=== PATIENT | female | born 1960 | race Two or more races ===

== ENCOUNTER 2020-08-17 19:06 | Emergency (ER) | payer MEDICAID, OTHER ==
[~2020-08-17] VITALS: Ht 154.9 cm; Wt 86.2 kg
[2020-08-17] MEDS ORDERED: fentaNYL CITRATE 100 MCG/2 ML VL IV ONE (21:45)
[2020-08-17] MEDS ORDERED: ONDANSETRON HCL 4 MG/2 ML VIAL IV ONE (21:45)
[2020-08-17] MEDS ORDERED: KETOROLAC TROMETH 30 MG/ML 1ML VIAL IV ONE (21:45)
[2020-08-18] MEDS ORDERED: HYDROcodone-ACET 10/325MG TAB ONE (00:09)
[2020-08-18] MEDS ORDERED: HYDROcodone-ACET 10/325MG TAB PO ONE (00:30)
[2020-08-18 01:00] VITALS: BP 110/58
== END 2020-08-18 00:59 | disposition home or self-care (01) ==
LOC: EDBD 19:06 → ER 19:06
DX: S76.302A Unspecified injury of muscle, fascia and tendon of the posterior muscle group at thigh level, left thigh, initial encounter (principal); E11.9 Type 2 diabetes mellitus without complications; E78.5 Hyperlipidemia, unspecified; W18.39XA Other fall on same level, initial encounter; Y93.89 Activity, other specified; Y92.89 Other specified places as the place of occurrence of the external cause; Y99.8 Other external cause status
CPT/HCPCS: 73552; 73560; 96374; 96375; 99284; J1885; J2405

== ENCOUNTER 2020-11-23 12:56 | Emergency (ER) | payer MEDICAID ==
[~2020-11-23] VITALS: Ht 154.9 cm; Wt 86.2 kg
[2020-11-23] MEDS ORDERED: ONDANSETRON HCL 4 MG/2 ML VIAL IV ONE ×2 (13:45→14:45)
[2020-11-23] MEDS ORDERED: MORPHINE SULF INJ 2 MG/ML SYRINGE 1ML IV ONE ×2 (13:45→15:00)
[2020-11-23] MEDS ORDERED: MORPHINE SULFATE 4 MG/ML SYR/VIAL IV ONE (14:45)
[2020-11-23 16:13] VITALS: BP 161/82
== END 2020-11-23 17:08 | disposition home or self-care (01) ==
LOC: EDBD 12:56 → ER 12:56
DX: S52.572A Other intraarticular fracture of lower end of left radius, initial encounter for closed fracture (principal); S39.012A Strain of muscle, fascia and tendon of lower back, initial encounter; E11.9 Type 2 diabetes mellitus without complications; E78.5 Hyperlipidemia, unspecified; W01.0XXA Fall on same level from slipping, tripping and stumbling without subsequent striking against object, initial encounter; Y93.89 Activity, other specified; Y92.89 Other specified places as the place of occurrence of the external cause; Y99.8 Other external cause status
CPT/HCPCS: 29125; 72131; 73110; 96374; 96375; 96376; 99284; J2270; J2405

== ENCOUNTER 2020-12-18 06:38 | Emergency (ER) | payer MEDICAID ==
[~2020-12-18] VITALS: Ht 157.5 cm; Wt 97.1 kg
[2020-12-18] MEDS ORDERED: HYDROcodone-ACET 10/325MG TAB PO ONE (08:15)
[2020-12-18] MEDS ORDERED: cloNIDine HCL 0.1 MG TAB PO ONE (08:15)
[2020-12-18 09:47] VITALS: BP 101/50
== END 2020-12-18 09:58 | disposition home or self-care (01) ==
LOC: ER 06:38
DX: G56.02 Carpal tunnel syndrome, left upper limb (principal); R07.9 Chest pain, unspecified; R50.9 Fever, unspecified; I10 Essential (primary) hypertension; E11.9 Type 2 diabetes mellitus without complications; E78.5 Hyperlipidemia, unspecified
CPT/HCPCS: 71045; 99283; J7030

== ENCOUNTER 2023-12-27 15:18 | Inpatient (IN) | payer MEDICAID ==
[~2023-12-27] VITALS: Ht 157.5 cm; Wt 63.0 kg
[2023-12-27 16:16] LABS: Basophils # (auto) 0 10 ^3/uL (0-0.2); Basophils % (auto) 0.4 % (0.0-2.0); Eosinophils # (auto) 0.1 10 ^3/uL (0-0.8); Eosinophils % (auto) 1.1 % (0.0-7.0); Hematocrit 35.5 % (36.0-46.0); Hemoglobin 11.9 g/dL (12.2-16.2); Lymphocytes # (auto) 3.2 10 ^3/uL (0.4-5.4); Lymphocytes % (auto) 30.8 % (10.0-50.0); Mean Corpuscular Hemoglobin 29.7 pg (28.0-32.0); Mean Corpuscular Hgb Conc. 33.5 g/dL (32.0-36.0); Mean Corpuscular Volume 88.7 fL (80.0-100.0); Monocytes # (auto) 0.5 10 ^3/uL (0-1.3); Monocytes % (auto) 4.5 % (0.0-12.0); Neutrophils # (auto) 6.6 10 ^3/uL (1.6-8.6); Neutrophils % (auto) 63.2 % (37.0-80.0); Nucleated Red Blood Cells % 0.1 %; Red Cell Distribution Width 13.7 % (11.8-14.3); White Blood Cell 10.5 10^3/uL (4.4-10.8)
[2023-12-27 16:36] LABS: Alanine Aminotransferase 18 U/L (7-40); Albumin 4.5 g/dL (3.2-4.8); Alkaline Phosphatase 56 U/L (46-116); Anion Gap 9 (5-15); Aspartate Aminotransferase 14 U/L (13-40); BUN/Creatinine Ratio 31.5 (10.0-20.0); Bilirubin, Total 0.3 mg/dL (0.2-1.0); Blood Urea Nitrogen 35 mg/dL (9-23); Calcium 10.1 mg/dL (8.7-10.4); Carbon Dioxide 26 mmol/L (20-30); Chloride 105 mmol/L (98-107); Glucose 86 mg/dL (74-106); Sodium 140 mmol/L (136-145); Total Protein 6.8 g/dL (5.7-8.2)
[2023-12-27 17:09] VITALS: PULSE 90; RESP 18; O2SAT 96
[2023-12-27 17:53] LABS: Urine Bacteria None Seen /hpf (None Seen)
[2023-12-27 18:13] LABS: Urine Blood Negative /uL (Negative); Urine Clarity Clear (Clear); Urine Color Light-Yellow (Yellow); Urine Protein, UAD Negative (Negative); Urine Specific Gravity 1.012 (1.001-1.035); Urine Urobilinogen Normal (Negative); Urine WBC 1 /hpf (0 - 5)
[2023-12-27] MEDS: ACETAMINOPHEN 500 MG TAB PO ONE (18:15)
[2023-12-27] MEDS: SODIUM CHLORIDE 0.9% 1,000 ML IV ONE ×2 (18:42→18:45)
[2023-12-27 19:30] VITALS: PULSE 87; RESP 11; O2SAT 94
[2023-12-27] MEDS ORDERED: LEV25T PO (19:43)
[2023-12-27] MEDS ORDERED: ASPI81CH49 PO (19:43)
[2023-12-27] MEDS ORDERED: AMLO1TAB23 PO (19:43)
[2023-12-27] MEDS ORDERED: [UNRECOGNIZED DRUG - CODE] IV (19:43)
[2023-12-27] MEDS ORDERED: HYDR12.55 PO (19:43)
[2023-12-27] MEDS ORDERED: ROSU40TA47 PO (19:43)
[2023-12-27] MEDS ORDERED: ESCI5TAB20 PO (19:43)
[2023-12-27] MEDS ORDERED: GAB100C PO (19:43)
[2023-12-27] MEDS ORDERED: LISI10TA34 PO (19:43)
[2023-12-27] MEDS ORDERED: NITROGLYCERIN 0.4 MG SL TAB SL PRN (19:45)
[2023-12-27] MEDS ORDERED: DOCUSATE SOD 100 MG CAP PO PRN (19:45)
[2023-12-27] MEDS ORDERED: ONDANSETRON HCL 4 MG/2 ML VIAL IV PRN (19:45)
[2023-12-27] MEDS ORDERED: MORPHINE SULFATE INJ 2 MG/ml SYRG IV PRN ×2 (19:45)
[2023-12-27 20:50] LABS: Amphetamine Screen, Urine Neg (NEGATIVE); Barbiturate Scree,Urine Neg (NEGATIVE); Benzodiazephine Screen, Urine Pos (NEGATIVE)
[2023-12-27 20:51] LABS: Cannabinoid Screen, Urine Neg (NEGATIVE); Cocaine Screen, Urine Neg (NEGATIVE); Opiate Scree,Urine Neg (NEGATIVE); Phencyclidine Screen, Urine Neg (NEGATIVE)
[2023-12-27] MEDS: DEXTROSE (50%) 50ML SYRG IV PRN (21:13)
[2023-12-27] MEDS: SODIUM CHLORIDE 0.9% 1,000 ML IV SCH (21:13)
[2023-12-27] MEDS: InsuLIN REG 1unit/0.01ml Soln (100units/ml) SC SCH (22:00)
[2023-12-27] MEDS: GABAPENTIN 100 MG CAP PO SCH (22:57)
[2023-12-27] MEDS: ATORVASTATIN 20 MG TAB PO SCH (22:58)
[2023-12-27] MEDS: ACCU-CHEK COMFORT CURVE STRIP VI SCH (22:58)
[2023-12-28] MEDS ORDERED: SODIUM CHLORIDE 0.9% 1,000 ML IV SCH (06:00)
[2023-12-28 06:17] LABS: Basophils # (auto) 0 10 ^3/uL (0-0.2); Basophils % (auto) 0.4 % (0.0-2.0); Eosinophils # (auto) 0.2 10 ^3/uL (0-0.8); Eosinophils % (auto) 2.3 % (0.0-7.0); Hemoglobin 11.1 g/dL (12.2-16.2); Lymphocytes # (auto) 3.4 10 ^3/uL (0.4-5.4); Lymphocytes % (auto) 44.4 % (10.0-50.0); Mean Corpuscular Hemoglobin 30.1 pg (28.0-32.0); Mean Corpuscular Hgb Conc. 33.7 g/dL (32.0-36.0); Mean Corpuscular Volume 89.5 fL (80.0-100.0); Monocytes # (auto) 0.4 10 ^3/uL (0-1.3); Monocytes % (auto) 4.8 % (0.0-12.0); Neutrophils # (auto) 3.7 10 ^3/uL (1.6-8.6); Neutrophils % (auto) 48.1 % (37.0-80.0); Nucleated Red Blood Cells % 0.1 %; Red Blood Cells 3.69 10^6/uL (4.0-5.20); Red Cell Distribution Width 13.9 % (11.8-14.3); White Blood Cell 7.6 10^3/uL (4.4-10.8)
[2023-12-28 06:29] LABS: Alanine Aminotransferase 12 U/L (7-40); Alkaline Phosphatase 50 U/L (46-116); Anion Gap 5 (5-15); BUN/Creatinine Ratio 18.3 (10.0-20.0); Blood Urea Nitrogen 15 mg/dL (9-23); Calcium 9.3 mg/dL (8.5-10.1); Carbon Dioxide 30 mmol/L (20-30); Chloride 108 mmol/L (98-107); Glucose 86 mg/dL (74-106); LDL Cholesterol 60 mg/dL (< 100); Potassium 3.9 mmol/L (3.5-5.1); Sodium 143 mmol/L (136-145); Triglycerides 162 mg/dL (< 150)
[2023-12-28 06:30] LABS: Albumin 3.9 g/dL (3.2-4.8); Aspartate Aminotransferase 18 U/L (13-40); Bilirubin, Total 0.4 mg/dL (0.2-1.0); Cholesterol 130 mg/dL (< 200); HDL Cholesterol 44 mg/dL (40-59); Total Protein 6.2 g/dL (5.7-8.2)
[2023-12-28] MEDS: LEVOTHYROXINE SODIUM 25 MCG TAB PO SCH (06:43)
[2023-12-28] MEDS: SODIUM CHLORIDE 0.9% 1,000 ML IV SCH (06:43)
[2023-12-28] MEDS: HYDROcodone-ACET 5/325MG TAB PO PRN (07:06)
[2023-12-28 08:10] VITALS: PULSE 78; RESP 12; O2SAT 99
[2023-12-28] MEDS: CITALOPRAM HYDROBR 20 MG TAB PO SCH (10:37)
[2023-12-28] MEDS: amLODIPine BESYLATE 5 MG TAB PO SCH (10:38)
[2023-12-28] MEDS: ENOXAPARIN SOD 40 MG/0.4 ML SYRINGE SC SCH (10:38)
[2023-12-28] MEDS: PANTOPRAZOLE 40 MG TAB PO SCH (10:38)
[2023-12-28] MEDS: ASPirin 81 mg TAB PO SCH (10:38)
[2023-12-28] MEDS: LORazepam 2MG/ML-1ML VIAL IV PRN (11:56)
[2023-12-28] MEDS: GADOTERATE MEG 7.5 MMOL/15ml INJ (0.5MMOL/ml) IV ONE (12:56)
[2023-12-28 19:34] VITALS: PULSE 96; RESP 19; O2SAT 97
[2023-12-28] MEDS: ACETAMINOPHEN 325 MG TAB PO PRN (21:13)
[2023-12-28 23:40] VITALS: BP 100/56; PULSE 88; RESP 18; TEMP 98.4; O2SAT 94
[2023-12-29] VITALS (8 sets, daily range): BP systolic 100–142; BP diastolic 56–82; PULSE 56–98; RESP 16–19; TEMP 98.1–98.5; O2SAT 94–97
[2023-12-29] MEDS ORDERED: INSU100I4 SC (00:26)
[2023-12-29] MEDS ORDERED: INSU1INJ19 SC (00:26)
[2023-12-29] MEDS ORDERED: METF-370 PO (00:26)
[2023-12-30 01:00] VITALS: BP_SYST 120; BP_SYST 140; BP_DIAS 62; BP_DIAS 82; PULSE 92; PULSE 95; RESP 17; RESP 19; TEMP 98.3; O2SAT 94; O2SAT 97
[2023-12-30 05:00] VITALS: BP 136/71; PULSE 83; RESP 18; TEMP 98; O2SAT 93
[2023-12-30 09:00] VITALS: BP 119/71; PULSE 99; RESP 17; TEMP 97.8; O2SAT 97
[2023-12-30 13:00] VITALS: BP 145/79; PULSE 83; RESP 17; TEMP 98.2; O2SAT 98
== END 2023-12-30 15:58 | disposition home or self-care (01) | DRG 424 ==
LOC: EDBD 15:18 → ER 15:18 → TELE 19:40 → TELE-WESTW 12-28 23:37 → WEST WING 12-29 00:28
PROVIDERS: ADMIT Nurse Practitioner Family; ATTEND Family Medicine
DX: E16.2 Hypoglycemia, unspecified (principal); N17.9 Acute kidney failure, unspecified; G36.0 Neuromyelitis optica [Devic]; I10 Essential (primary) hypertension; F32.A Depression, unspecified; E78.00 Pure hypercholesterolemia, unspecified; G35 Multiple sclerosis; F17.200 Nicotine dependence, unspecified, uncomplicated; Z86.73 Personal history of transient ischemic attack (TIA), and cerebral infarction without residual deficits; Z82.49 Family history of ischemic heart disease and other diseases of the circulatory system; Z79.899 Other long term (current) drug therapy; Z79.82 Long term (current) use of aspirin; Z83.3 Family history of diabetes mellitus; Z86.69 Personal history of other diseases of the nervous system and sense organs
CPT/HCPCS: 36415; 70450; 70553; 71045; 72142; 80053; 80061; 80307; 81001; 82962; 84443; 84484; 85025; 93005; 96360; 96361; G0378; J1815